=== PATIENT | male | born 1970 | race Caucasian/White ===

== ENCOUNTER 2023-03-08 10:45 | Outpatient (OUT) | payer OTHER, SELFPAY ==
[2023-03-08 11:24] LABS: Basophils Percent Auto 0.7 % (0.2-2.0); Eosinophils Absolute Auto 0.2 10^3/uL (0.0-0.7); Eosinophils Percent Auto 4.1 % (0.9-7.0); Hematocrit 46.8 % (42.0-54.0); Hemoglobin 16.1 g/dL (14.0-18.0); Immature Granulocytes Abs Auto 0.01 10^3/uL (0.00-0.03); Immature Granulocytes Pct Auto 0.2 % (0.0-0.5); Lymphocytes Absolute Auto 1.8 10^3/uL (1.2-3.8); Lymphocytes Percent Auto 40.2 % (20.5-60.0); Mean Corpuscular HGB Conc 34.4 g/dL (29.9-35.2); Mean Corpuscular Hemoglobin 29.7 pg (25.9-34.0); Mean Corpuscular Volume 86.3 fL (80.0-94.0); Mean Platelet Volume 10.1 fL (9.5-13.5); Monocytes Absolute Auto 0.5 10^3/uL (0.3-0.8); Monocytes Percent Auto 11.5 % (1.7-12.0); Neutrophils Absolute Auto 1.9 10^3/uL (1.4-6.5); Neutrophils Percent Auto 43.3 % (43.0-75.0); Platelet Count 226 10^3/uL (150-450); Red Blood Count 5.42 10^6/uL (4.70-6.10); Red Cell Distribution Width 11.5 % (11.0-15.0); White Blood Count 4.4 10^3/uL (4.0-11.0)
[2023-03-08 12:01] LABS: Alanine Aminotransferase 49 U/L (16-63); Albumin Globulin Ratio 1.1; Albumin Level 4.1 g/dL (3.4-5.0); Alkaline Phosphatase 63 U/L (46-116); Anion Gap 8.8; Aspartate Amino Transferase 24 U/L (15-37); BUN Creatinine Ratio 18.1; Calcium 8.9 mg/dL (8.5-10.1); Carbon Dioxide 32.3 mmol/L (21.0-32.0); Chloride 102 mmol/L (98-107); Cholesterol 186 mg/dL (<=200); Estimated GFR (African America >60 (>=60); Estimated GFR (Non-African Ame >60 (>=60); Globulin 3.7 g/dL; Glucose 93 mg/dL (74-106); HDL Cholesterol 46 mg/dL (40-60); Potassium 4.1 mmol/L (3.5-5.1); Sodium 139 mmol/L (136-145); Total Protein 7.8 g/dL (6.4-8.2); Triglycerides 110 mg/dL (<=150)
[2023-03-08 12:20] LABS: Prostate Specific Antigen Scrn 1.18 ng/mL (<=4.00)
== END 2023-03-08 10:46 | disposition home or self-care (01) ==
DX: Z00.00 Encounter for general adult medical examination without abnormal findings (principal); Z13.1 Encounter for screening for diabetes mellitus; Z12.5 Encounter for screening for malignant neoplasm of prostate; Z51.81 Encounter for therapeutic drug level monitoring; L40.9 Psoriasis, unspecified; Z13.6 Encounter for screening for cardiovascular disorders
CPT/HCPCS: 36415; 80053; 80061; 85025; G0103

== ENCOUNTER 2024-03-09 15:52 | Outpatient (OUT) | payer OTHER, SELFPAY ==
--- OUTSIDE RECORDS SUMMARY | 2024-03-09 16:17 | XMS_ITS | CCD ---
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 Role Phone Michelle Noriega Unavailable MICHELLE NORIEGA Attending Unavailable MICHELLE NORIEGA Admitting Unavailable Medications Current Medications Medication Drug Class(es) Dates Sig (Normalized) Sig (Original) aspirin 81 mg delayed release oral tablet (3 sources) Platelet Aggregation Inhibitor, Nonsteroidal Anti-inflammatory Drug take 1 tablet by mouth every other day Aspirin 81 81 MG 1 tablet Orally qod Active betamethasone 0.0005 mg/mg topical ointment (7 sources) Corticosteroid Betamethasone Dipropionate 0.05 % 1 application to affected area Externally Once a day for 30 day(s) Active Completed/Discontinued Medications Medication Drug Class(es) Dates Sig (Normalized) Sig (Original) cefTRIAXone (7 sources) Cephalosporin Antibacterial Start: 02-18-2015 Rocephin 500 mg Feb, 250 mg Problems Active Problems Problem Classification Problem Date Documented Da te Episodic/Chronic Acute and chronic tonsillitis (7 sources) Amygdalolith; Translations: [Other chronic diseases of tonsils and adenoids] Chronic Other inflammatory condition of skin (7 sources) Psoriasis; 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, unspecified] Chronic Other inflammatory condition of skin (7 sources) Scalp psoriasis; 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, unspecified] Chronic Other inflammatory condition of skin (4 sources) Psoriasis, unspecified Onset: 01-10-2022 Resolved: 01-10-2022 Chronic Other upper respiratory disease (7 sources) Allergic rhinitis; Translations: [Allergic rhinitis, unspecified] Chronic Other upper respiratory infections (7 sources) Sore throat symptom; Translations: [Acute pharyngitis, unspecified] Episodic Past or Other Problems Problem Classification Problem Date Documented Date Episodic/Chronic Other screening for suspected conditions (not mental disorders or infectious disease) (3 sources) Encounter for screening for diabetes mellitus; Translations: [Encounter for screening for cardiovascular disorders] Onset: 01-10-2022 Resolved: 01-10-2022 Episodic Residual codes; unclassified (1 source) Procedure and treatment not carried out because of patient's decision for unspecified reasons Onset: 01-10-2022 Resolved: 01-10-2022 Episodic Vital Signs Date Time Vital Sign Value Performing Clinician Facility 01-10-2022 17:00-0400 Body height 182.88 cm Michelle Noriega Other [facility] Other 01-10-2022 17:00-0400 Body mass index (BMI) [Ratio] 25.18 kg/m2 Michelle Noriega Other [facility] Other 01-10-2022 17:00-0400 Body weight 84.23 kg Michelle Noriega Other [facility] Other 01-10-2022 17:00-0400 Diastolic blood pressure 86 mm[Hg] Michelle Noriega Other [facility] Other 01-10-2022 17:00-0400 Respiratory rate 18 /min Michelle Noriega Other [facility] Other 01-10-2022 17:00-0400 SaO2% (BldA) [Mass fraction] 98 % Michelle Noriega Other [facility] Other 01-10-2022 17:00-0400 Systolic blood pressure 138 mm[Hg] Michelle Noriega Other [facility] Other Encounters Encounter Date Encounter Type Care Provider Facility Start: 04-27-2023 End: 04-27-2023 ambulatory Michelle Noriega Other [facility] Other Start: 12-17-2023 Encounter by estevan Noriega [facility] Start: 03-10-2023 End: 03-10-2023 ambulatory Michelle Noriega Other [facility] Other Start: 03-10-2023 Telephone encounter Michelle Guzman [facility] Start: 03-07-2023 End: 03-07-2023 ambulatory Michelle Noriega Other [facility] Other Start: 03-07-2023 Encounter by compute r link Michelle Noriega [facility] [place] Start: 01-01-2023 End: 01-01-2023 ambulatory Michelle Noriega Other [facility] Other Start: 01-01-2023 Encounter by compute r jake Noriega [facility] [place] Start: 12-30-2022 End: 12-30-2022 ambulatory Michelle Noriega Other [facility] Other Start: 12-30-2022 Encounter by compute r jake Noriega [facility] [place] Start: 07-18-2022 End: 07-18-2022 ambulatory Michelle Noriega Other [facility] Other Start: 07-18-2022 Encounter by compute r jake Noriega [facility] [place] Start: 03-21-2022 ambulatory MICHELLE NORIEGA Facility :[facility] Start: 01-10-2022 End: 01-10-2022 ambulatory Michelle Noriega Other [facility] Other Start: 01-10-2022 Encounter for genera l adult medical examination without abnormal findings Michelle Noriega [facility] [place] Start: 01-10-2022 Periodic preventive med est patient 40-64yrs Michelle Fernandesmer [facility] [place] Payers Date Payer Category Payer Unknown [id number] 1970 Unknown [id number] 1960 Self-pay Unknown [id number] Social History Date Type Detail Facility Sex Assigned At [facility] Other Evaluation note 03-07-2023 Note Date & Type Note Facility 03-07-2023 Evaluation note Encounter Date Diagnosis Assessment Notes Feb, Psoriasis (ICD-10 - L40.9) [facility] Other Evaluation note 12-30-2022 Note Date & Type Note Facility 12-30-2022 Evaluation note Encounter Date Diagnosis Assessment Notes Dec, Psoriasis (ICD-10 - L40.9) [facility] Other Evaluation note 07-18-2022 Note Date & Type Note Facility 07-18-2022 Evaluation note Encounter Date Diagnosis Assessment Notes Jul, Psoriasis (ICD-10 - L40.9) [facility] Other Evaluation note 01-10-2022 Note Date & Type Note Facility 01-10-2022 Evaluation note Encounter Date Diagnosis Assessment Notes Jan, Psoriasis (ICD-10 - L40.9) Jan, Well adult exam (ICD-10 - Z00.00) 51-year-old male who has a couple chronic medical conditions to on Clomid stones in the tonsils as well as psoriasis. The psoriasis is doing well with as needed betamethasone. He is doing lifestyle modifications for the tonsillar stones but I did inform him that if they worsen or if he wants a second opinion I will refer him to a different ENT specialist. At this time he is not having as significant flareups and want to see another ENT. He is due for updated lab work and this was ordered for him. He will be contacted with results of been reviewed. He does not want any colon cancer screening at this time. He is to follow-up in 1 year or sooner assuming his labs are all within normal limits. Jan, Screening for diabetes mellitus (ICD-10 - Z13.1) Jan, Encounter for screening for cardiovascular disorders (ICD-10 - Z13.6) Jan, Screening for prostate cancer (ICD-10 - Z12.5) Jan, Colon cancer screening declined (ICD-10 - Z53.20) [facility] Other Evaluation note Note Date & Type Note Facility Evaluation note No Information [facility] [employer] Other History general Narrative - Reported Note Date & Type Note Facility History general Narrative - Reported Type Medical History PFO (patent foramen ovale) Medical History psoriasis Medical History hx of mini stroke Surgical History PE tubes Hospitalization History No Hospitalization histo ry information [facility] Other Summary Purpose Family History No Family History Records Found Advance Directives No Advanced Directives Records Found Additional Source Comments REASON FOR VISIT (unrecogniz ed section and content) AWVNew Refill RequestNew Ref ill RequestNew Refill RequestNew Refill RequestLab resultsUpdate Demographics - Personal Info (unrecognized sect ion and content) No Status Records Found INFORMATION SOURCE (unrecogn ized section and content) DATE CREATED AUTHOR 03/22/2022 [facility] FOR RECORDS PERTAINING TO PATIENTS WHO ARE OR HAVE BEEN ENROLLED IN A CHEMICAL DEPENDENCY/SUBSTANCEABUSE PROGRAM, SOME INFORMATION MAY BE OMITTED. This clinical summary was aggregated from multiple sources. Caution should be exercised in using it in the provision of clinical care. This summary normalizes information from multiple sources, and as a consequence, information in this document may materially change the coding, format and clinical context of patient data. In addition, data may be omitted in some cases. CLINICAL DECISIONS SHOULD BE BASED ON THE PRIMARY CLINICAL RECORDS. [facility]. provides no warranty or guarantee of the accuracy or completeness of information in this document.
[2024-03-09 16:21] LABS: Basophils Percent Auto 0.7 % (0.2-2.0); Eosinophils Absolute Auto 0.2 10^3/uL (0.0-0.7); Eosinophils Percent Auto 3.8 % (0.9-7.0); Hematocrit 46.1 % (42.0-54.0); Hemoglobin 15.7 g/dL (14.0-18.0); Immature Granulocytes Abs Auto 0.01 10^3/uL (0.00-0.03); Immature Granulocytes Pct Auto 0.2 % (0.0-0.5); Lymphocytes Absolute Auto 1.6 10^3/uL (1.2-3.8); Lymphocytes Percent Auto 36.7 % (20.5-60.0); Mean Corpuscular HGB Conc 34.1 g/dL (29.9-35.2); Mean Corpuscular Hemoglobin 28.9 pg (25.9-34.0); Mean Corpuscular Volume 84.7 fL (80.0-94.0); Mean Platelet Volume 10.1 fL (9.5-13.5); Monocytes Absolute Auto 0.6 10^3/uL (0.3-0.8); Monocytes Percent Auto 14.4 % (1.7-12.0); Neutrophils Absolute Auto 1.9 10^3/uL (1.4-6.5); Neutrophils Percent Auto 44.2 % (43.0-75.0); Platelet Count 210 10^3/uL (150-450); Red Blood Count 5.44 10^6/uL (4.70-6.10); Red Cell Distribution Width 11.8 % (11.0-15.0); White Blood Count 4.3 10^3/uL (4.0-11.0)
[2024-03-09 16:34] LABS: Alanine Aminotransferase 49 U/L (16-63); Albumin Level 3.6 g/dL (3.4-5.0); Alkaline Phosphatase 68 U/L (46-116); Anion Gap 11.9; Aspartate Amino Transferase 24 U/L (15-37); BUN Creatinine Ratio 16.1; Bilirubin Total 0.8 mg/dL (0.2-1.0); Calcium 8.7 mg/dL (8.5-10.1); Carbon Dioxide 29.9 mmol/L (21.0-32.0); Chloride 104 mmol/L (98-107); Chol HDL Ratio 3.2; Cholesterol 178 mg/dL (<=200); Estimated GFR (African America >60 (>=60 mL/min/1.73m^2); Estimated GFR (Non-African Ame >60 (>=60 mL/min/1.73m^2); Globulin 3.7 g/dL; Glucose 100 mg/dL (74-106); HDL Cholesterol 56 mg/dL (40-60); LDL Cholesterol Calculated 107.6 mg/dL; Potassium 3.8 mmol/L (3.5-5.1); Sodium 142 mmol/L (136-145); Total Protein 7.3 g/dL (6.4-8.2); Triglycerides 72 mg/dL (<=150); VLDL CHOLESTEROL 14.4 mg/dL
[2024-03-09 16:56] LABS: Prostate Specific Antigen Scrn 1.26 ng/mL (<=4.00)
== END 2024-03-09 15:53 | disposition home or self-care (01) ==
LOC: LAB 15:54
DX: E78.2 Mixed hyperlipidemia (principal); L40.9 Psoriasis, unspecified; Z51.81 Encounter for therapeutic drug level monitoring
CPT/HCPCS: 36415; 80053; 80061; 85025; G0103